=== PATIENT | female | born 1990 | race Caucasian/White ===

== ENCOUNTER 2017-10-22 18:24 | Emergency (ER) | payer OTHER ==
[~2017-10-22] VITALS: Ht 167.6 cm; Wt 49.4 kg
[2017-10-22 19:10] LABS: HEMATOCRIT 34.1 % (36.0-46.0); HEMOGLOBIN 12.1 G/DL (11.9-15.5); MCH 30.2 PG (29.0-34.0); MCHC 35.5 G/DL (30.0-36.0); PLATELET COUNT 197 K/uL (156-360); RBC DIS.WIDTH-CV 11.5 % (11.8-14.6); RBC DIS.WIDTH-SD 35.8 % (39-53); RED BLOOD COUNT 4.01 M/uL (3.80-5.20); WHITE BLOOD COUNT 5.4 K/uL (4.1-10.2)
[2017-10-22 19:22] LABS: CHLORIDE 106 mEq/L (99-109); POTASSIUM 3.3 mEq/L (3.7-5.4); SODIUM 136 mEq/L (136-147)
[2017-10-22 19:24] LABS: GLUCOSE 115 mg/dL (70-99)
[2017-10-22 19:27] LABS: SERUM ETHYL ALCOHOL < 10 mg/dL
[2017-10-22 19:28] LABS: CREATININE 0.7 mg/dL (0.6-1.3); GFR ESTIMATE (CALCULATED) > 59 mL/min/
[2017-10-22 19:29] LABS: UREA NITROGEN (BUN) 10 mg/dL (9-23)
[2017-10-22 19:31] LABS: TROP-I INTERPRETATION NEGATIVE; TROPONIN-I < 0.01 ng/mL (0.0-0.30)
[2017-10-22 19:51] LABS: AMPHETAMINE NEGATIVE (500 ng/mL); BARBITURATES NEGATIVE (200 ng/mL); BENZODIAZEPINES NEGATIVE (150 ng/mL); BUPRENORPHINE NEGATIVE (10 ng/mL); COCAINE NEGATIVE (150 ng/mL); METHADONE NEGATIVE (200 ng/mL); METHAMPHETAMINE NEGATIVE (500 ng/mL); OPIATES (MORPHINE) NEGATIVE (100 ng/mL); OXYCODONE NEGATIVE (100 ng/mL); PHENCYCLIDINE NEGATIVE (25 ng/mL); PROPOXYPHENE NEGATIVE (300 ng/mL); THC CANNABINOIDS PRESUMPTIVE POSITIVE (50 ng/mL); TRICYCLIC ANTIDEPRESSANTS NEGATIVE (300 ng/mL)
[2017-10-22] MEDS ORDERED: MOTRIN400 MG PO (22:22)
[2017-10-22 22:43] VITALS: BP 119/66
== END 2017-10-22 22:44 | disposition home or self-care (01) ==
LOC: EME 18:24
PROVIDERS: Emergency Medicine
DX: R07.9 Chest pain, unspecified (principal); R06.02 Shortness of breath; F17.200 Nicotine dependence, unspecified, uncomplicated; Z82.49 Family history of ischemic heart disease and other diseases of the circulatory system; Z71.6 Tobacco abuse counseling
CPT/HCPCS: 71046; 71275; 80048; 84484; 84999; 85027; 93005; 99281; 99285; G0480; J2270; J7030

== ENCOUNTER 2018-01-20 22:20 | Emergency (ER) | payer OTHER ==
[~2018-01-20] VITALS: Ht 165.1 cm; Wt 48.5 kg
[~2018-01-20 22:20] MED LIST: MOTRIN400 MG PO
[2018-01-20 22:41] VITALS: BP 114/60
== END 2018-01-21 00:01 | disposition home or self-care (01) ==
LOC: EME 22:20
DX: R55 Syncope and collapse (principal); F17.200 Nicotine dependence, unspecified, uncomplicated; Z98.890 Other specified postprocedural states
CPT/HCPCS: 99281; 99283